=== PATIENT | female | born 2000 | race Caucasian/White ===

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

== ENCOUNTER → 2024-05-26 | Outpatient (CLI) | payer OTHER, SELFPAY ==
[2024-05-30 00:07] LABS: Chlamydia By Nucleic Acid AMP Negative (Negative); Gonococcus By Nucleic Acid AMP Negative (Negative)
[2024-05-31 15:10] LABS: HPV Reflexed? NOT INDICATED
== END | disposition home or self-care (01) ==
LOC: LABSPEC 12:34
PROVIDERS: PCP Family Medicine; Referring Provider Obstetrics & Gynecology; Visit Provider Obstetrics & Gynecology
DX: Z34.00 Encounter for supervision of normal first pregnancy, unspecified trimester (principal)
CPT/HCPCS: 87086; 87491; 87591; 88175; G0145

== ENCOUNTER → 2024-06-24 | Outpatient (CLI) | payer OTHER, SELFPAY ==
[2024-06-24 14:48] LABS: Absolute Neutrophil Count 6.3 X10^3/uL (2.0-7.7); Basophil# 0.02 X10^3/uL; Basophil% 0.3 % (0-1); Eosinophil# 0.11 X10^3/uL; Eosinophils% 1.4 % (0-5); Hematocrit 36.1 % (37-47); Hemoglobin 12.4 g/dL (12.0-15.0); Mean Corp Hgb Conc 34.3 g/dL (32-36); Mean Corpuscular Hgb 31.7 pg (27.0-32.0); Mean Corpuscular Volume 92.3 fL (81-99); Mean Platelet Vol. 8.8 fl (6.2-12.0); Monocyte# 0.27 X10^3/uL; Monocyte% 3.4 % (0-10); NRBC Flagged by Analyzer 0 % (0-5); Neutrophil # 6.34 X10^3/uL (2.7-7.7); Neutrophil % 80.5 % (47-70); Platelet Count 264 K/mm3 (150-450); RBC Distribution Width CV 11.9 % (11.6-14.6); Red Blood Count 3.91 M/mm3 (4.2-5.4); White Blood Count 7.9 K/mm3 (4.4-11.0)
[2024-06-24 15:52] LABS: HIV - WCH Non-Reactive (Nonreactive); Hepatitis B Surface Antigen Non-Reactive (Nonreactive); Hepatitis C Antibody Non-Reactive (Nonreactive); Rubella IgG Reactive (Nonreactive); Syphilis Antibodies Non-reactive
== END | disposition home or self-care (01) ==
LOC: LAB 14:10
PROVIDERS: PCP Family Medicine; Referring Provider Obstetrics & Gynecology; Visit Provider Obstetrics & Gynecology
DX: Z34.90 Encounter for supervision of normal pregnancy, unspecified, unspecified trimester (principal)
CPT/HCPCS: 36415; 85025; 86703; 86762; 86780; 86803; 86850; 86900; 86901; 87340

== ENCOUNTER → 2024-10-10 | Outpatient (CLI) | payer OTHER, SELFPAY ==
[2024-10-10 12:25] LABS: Absolute Lymphocyte Count 0.83 X10^3/uL (0.83-4.51); Absolute Neutrophil Count 6.2 X10^3/uL (2.0-7.7); Basophil# 0.03 X10^3/uL; Basophil% 0.4 % (0-1); Eosinophil# 0.07 X10^3/uL; Eosinophils% 0.9 % (0-5); Hematocrit 34.9 % (37-47); Hemoglobin 11.5 g/dL (12.0-15.0); Lymphocyte # 0.83 X10^3/ul (0.83-4.51); Lymphocyte % 11.2 % (19-41); Mean Corpuscular Hgb 31.9 pg (27.0-32.0); Mean Corpuscular Volume 96.7 fL (81-99); Mean Platelet Vol. 9.4 fl (6.2-12.0); Monocyte# 0.29 X10^3/uL; Monocyte% 3.9 % (0-10); NRBC Flagged by Analyzer 0 % (0-5); Neutrophil # 6.15 X10^3/uL (2.7-7.7); Neutrophil % 83.2 % (47-70); Platelet Count 257 K/mm3 (150-450); RBC Distribution Width CV 11.8 % (11.6-14.6); RBC Distribution Width SD 41.4 fl (35.1-43.9); Red Blood Count 3.61 M/mm3 (4.2-5.4); White Blood Count 7.4 K/mm3 (4.4-11.0)
[2024-10-10 13:11] LABS: Glucose Challenge Gest 1H 50g 93 mg/dL (70-140)
[2024-10-10 13:37] LABS: HIV - WCH Non-Reactive (Nonreactive); Syphilis Antibodies Non-reactive
== END | disposition home or self-care (01) ==
LOC: BWCLAB 09:46
PROVIDERS: PCP Family Medicine; Referring Provider Advanced Practice Midwife; Visit Provider Advanced Practice Midwife
DX: Z34.02 Encounter for supervision of normal first pregnancy, second trimester (principal)
CPT/HCPCS: 36415; 82950; 85025; 86703; 86780

== ENCOUNTER → 2024-11-30 | Outpatient (CLI) | payer OTHER, SELFPAY ==
--- NOTE | 2024-12-05 10:36 | US_ITS ---
PROCEDURE: OB LIMITED WITH BIOMETRICS REASON FOR EXAM: MEASURING 4 WEEKS BEHIND COMPARISON: None. FINDINGS Number: 1 Position: Vertex Placental Position: Posterior and not low-lying. Placental Abnormalities: None. DIMENSIONS: Biparietal Diameter: 8.79 cm: 35 weeks and 4 days: 24 percentile/ Head Circumference: 32.06 cm: 36 weeks and 1 day: 10 percentile/ Abdominal Circumference: 32.31 cm: 36 weeks and 2 days: 41 percentile/ Femur Length: 7.02 cm: 36 weeks 0 days: 24 percentile/ ESTIMATED WEIGHT: 2869 g plus/-430 g ESTIMATED WEIGHT PERCENTILE (24+ weeks): 35 ESTIMATED GESTATIONAL AGE: Baseline: 37 weeks and 0 days By Ultrasound: 36 weeks and 0 days ESTIMATED DATE OF DELIVERY: Baseline: December 26, 2024 By Ultrasound: January 02, 2025 BIOPHYSICAL ASSESSMENT: Amniotic Fluid Volume: Subjectively normal. Amniotic Fluid Index: 13.4 (8-24 cm normal range) Cardiac Motion: 144 beats per minute (average) Trunk and Limb Motion: Present. MATERNAL ANATOMY: Adnexa: Neither maternal ovary is successfully identified. Cervical Length (if measured): 4 cm US/OB Limited With Biometrics IMPRESSION: Single live intrauterine gestation with a mean gestational age of 36 weeks. Reading Location: [facility]
[2024-12-05 10:46] VITALS: BMI 24.7
== END | disposition home or self-care (01) ==
LOC: LABSPEC 16:05
PROVIDERS: PCP Family Medicine; Referring Provider Obstetrics & Gynecology; Visit Provider Obstetrics & Gynecology
DX: Z34.03 Encounter for supervision of normal first pregnancy, third trimester (principal)
CPT/HCPCS: 87077; 87081; 87186

== ENCOUNTER 2024-12-05 10:27 | Outpatient (CLI) | payer OTHER, SELFPAY ==
[2024-12-05 11:00] VITALS: BMI 24.7
[2024-12-05 11:52] VITALS: RESP 16; TEMP 36.8
[2024-12-05 11:53] VITALS: BP 110/74; PULSE 82; PULSE 86; O2SAT 98
--- NOTE | 2024-12-05 12:39 | OB.TRI.PN_ITS ---
Progress Notes Date of Service: 12/05/24 Progress Note: Patient presents for triage evaluation secondary to decreased fundal height in the office-growth US. FHT: 130 Moderate variability reactive no decelerations category I tracing [place]: none Contractions Assessment and plan: Reassuring growth US and TICO, Reactive NST, reassuring maternal and status patient discharged to home to follow-up in the office. See problem list details for additional plan information. Charges/Coding Multi Select Codes Urinary/Genital Urinary/Genital CPT Codes: 89422-44 non-stress test Interp Assessment & Plan (1) Uterine size-date discrepancy, third trimester: COMMENT: growth us-nl D/C home (2) Supervision of normal first : QUALIFIERS: Trimester: third trimester Qualified Code(s): Z34.03 - Encounter for supervision of normal first , third trimester COMMENT: PRR, , RACHELE 12/26/24, Ludin (3) : QUALIFIERS: Weeks of gestation: 37 weeks Qualified Code(s): Z3A.37 - 37 weeks gestation of COMMENT: normal anatomy, discussed genetic & carrier testing- undecided
== END 2024-12-05 12:35 | disposition home or self-care (01) ==
LOC: WPOUT 10:28 → WP 10:29
PROVIDERS: PCP Family Medicine; Referring Provider Advanced Practice Midwife; Visit Provider Advanced Practice Midwife
DX: O26.843 Uterine size-date discrepancy, third trimester (principal); Z3A.37 37 weeks gestation of pregnancy
CPT/HCPCS: 59025; 59050; 76816; 99221; G0378

== ENCOUNTER 2024-12-29 08:13 | Inpatient (IN) | payer OTHER, SELFPAY ==
[2024-12-29] VITALS (43 sets, daily range): BP systolic 111–132; BP diastolic 56–81; PULSE 83–118; RESP 16–20; TEMP 36.8–37.4; O2SAT 97–100; BMI 24.2
--- NOTE | 2024-12-29 08:24 | HP.PCM.OB_ITS ---
HPI - General General Date of Admission: 12/29/24 HPI Narrative PAT HANNAH, is a 24 y/o @ 40 weeks who presents to L&D in active labor. She is GBS positive. She wants minimal intervention and seems to be a good candidate for intermittent monitoring. She denies loss of fluid. She is requesting to get in the tub. So far there is a category 1 tracing. The nurse that just checked her reported that she is 4 cm dilated, 100% effaced, vertex and bulging membranes. Maternal Data Information RACHELE Calculator Estimated Delivery Date Method Current WG Current Estimate 12/26/24 LMP (Certain) 40w 3d Other Estimates 12/29/24 Ultrasound #1 40w 0d PFSH PFSH Medical History Dysmenorrhea Tear of medial meniscus of right knee Seasonal allergies Ovarian cyst Home Medications ?Medication ?Instructions ?Recorded ?Last Taken ?Type PNV 153-FA 400 mcg-om3 35 mg-dha 1 tab PO DAILY 12/28/24 08:00 History 25 mg-epa 5 mg-fish oil chew tablet 1 TAB famotidine 20 mg tablet (Acid 20 mg PO QHS 12/29/24 20:00 History Controller) 20 mg Allergy/AdvReac Type Severity Reaction Status Date / Time No Known Allergies Allergy Verified 12/29/24 07:41 Family History Father Heart disease Anxiety and depression Uncle Heart disease Paternal Mother Heart disease SVT Aunt Heart disease Maternal- SVT Sister Anxiety and depression Surgical History [place] teeth extracted H/O: knee surgery H/O arthroscopy of left knee Social History adopted: No household members: spouse current occupational status: employed current occupation: self employed current occupational exposures/hazards: No pets and animals: No history of recent travel: Yes ([facility]– [place]- [place]) sexually active: Yes Smoking Status: Never smoker alcohol intake: never substance use type: does not use well-balanced diet: daily or most days caffeine: Yes eating out: 1-3 times/week during the past year weight has: remained stable what type of physical activity do you participate in: walking and weight training frequency: 1-2 times per week duration: 45-60 minutes/day sunita/congregational: Gnosticist seatbelt use: always do you feel safe at home: Yes additional social history: - Ludin ac History 1 Elective abortions Hx Para 0 Spontaneous abortions Hx # Term Pregnancies Ectopic pregnancies Hx # Pregnancies Multiple births # of living children Visit Details Expected Delivery Route/Plan Labor Preferences- CB/BF classes: scheduled labor support person: Ludin labor intervention preferences: [] pain management options preferred: limited if possible cut cord/dad catch: no : yes PP control planned: discussed discussed possible routes of delivery and associated risks: [] special requests: [] Plans Covid status: [] Flu vaccine:n given Tdap vaccine: given Rhogam: NA LARC form signed: yes movement and labor precautions reviewed. Problem list reviewed and updated with the most current plan of care details and appropriate orders placed. Relevant counseling for the gestational age provided. Continue routine care and follow up unless otherwise noted in visit notes/problem list details OB Flowsheet Initial Weight: Not Recorded Date -?-?-?-?-?-?-?-?-?-?-?-?- EGA Weight BP Urine Prot -?-?-?-?-?-?-?-?-?--?-?-?- Glucose FHR FuHt Pres Dilation -?-?-?-?-?-?-?-?-?-?-?-?- Effaced St Visit Note 05/26/24 -?-?-?-?-?-?-?-?-?-?-?-?- 9w 3d 127 lb 8 oz 117/71 -?-?-?-?-?-?-?-?-?-?-?-?- 163 -?-?-?-?-?-?-?-?-?-?-?-?- JV- CRL measures 2 .6 cm and consistent with LMP. She is undecided about nipt. 06/24/24 -?-?-?-?-?-?-?-?-?-?-?-?- 13w 4d 129 lb 103/63 Negative -?-?-?-?-?-?-?-?-?-?-?-?- Negative 153 -?-?-?-?-?-?-?-?-?-?-?-?- KW- no vb/kathrine farris. MFM US ordered. feeling well. 07/20/24 -?-?-?-?-?-?-?-?-?-?-?-?- 17w 2d 131 lb 6 oz 108/62 Nega tive -?-?-?-?-?-?-?-?-?-?-?-?- Negative 145 -?-?-?-?-?-?-?-?-?-?-?-?- MH-No vB. Grace de oliveira. Flu vaccine 08/16/24 -?-?-?-?-?-?-?-?-?-?-?-?- 21w 1d 136 lb 6 oz 108/66 Nega tive -?--?-?-?-?-?-?-?-?-?-?-?- Negative 145 21 -?-?-?-?-?-?-?-?-?-?-?-?- SM- no vb lof go od fm 09/12/24 -?-?-?-?-?-?-?-?-?-?-?-?- 25w 0d 145 lb 112/68 Negative -?-?-?-?-?-?-?-?-?-?-?-?- Negative 130 25 -?-?-?-?-?-?-?-?-?-?-?-?- KW- no vb.lof.ct x. good fm. 28 week labs discussed. 10/10/24 -?-?-?-?-?-?-?-?-?-?-?-?- 29w 0d 148 lb 4 oz 110/66 Nega tive -?-?-?-?-?-?-?-?-?-?-?-?- Negative 150 28 -?-?-?-?-?-?-?-?-?-?-?-?- MH-No VB, LOF. L arc done. Considering tdap. 28 wk labs pending 10/24/24 -?-?-?-?-?-?-?-?-?-?-?-?- 31w 0d 148 lb 8 oz 120/77 Nega tive -?-?-?-?-?-?-?-?-?-?-?-?- Negative 145 30 -?-?-?-?-?-?-?-?-?-?-?-?- KW- no vb/lof/ct x. good fm. Tdap today. preference worksheet given 11/07/24 -?-?-?-?-?-?-?-?-?-?-?-?- 33w 0d 154 lb 123/79 Negative -?-?-?-?-?-?-?-?-?-?-?-?- Negative 135 32 -?-?-?-?-?-?-?-?-?-?-?-?- KW- no vb/lof/ct x. good fm. no concerns today 11/21/24 -?-?-?-?-?-?-?-?-?-?-?-?- 35w 0d 153 lb 8 oz 118/72 Nega tive -?-?-?-?-?-?-?-?-?-?-?-?- Negative 145 34 -?-?-?-?-?-?-?-?-?-?-?-?- JV- no lof, vagi nal bleeding, or dec fm. no complaints other than heart burn. pepcid sent to pharmacy 11/24/24 -?-?-?-?-?-?-?-?-?-?-?-?- 35w 3d 156 lb 2 oz 112/74 Nega tive -?-?-?-?-?-?-?-?-?-?-?-?- Negative 155 34 -?-?-?-?-?-?-?-?-?-?-?-?- KW- no vb/lof/ct x. good fm. rash/itching onset thursday evening. no changes in lotion/detergents -no significant rash noted. Likely start of pupps rash- discussed appropriate medications and comfort measures. follow up early next week. 11/30/24 -?-?-?-?-?-?-?-?-?-?--?-?- 36w 2d 153 lb 8 oz 125/78 Nega tive -?-?-?-?-?-?-?-?-?-?-?-?- Negative 145 34 Cephalic 0 -?-?-?-?-?-?-?-?-?-?-?-?- Sm- no vb lof go od fm no reuglar ctx gbs collected, growth us ordered 12/05/24 -?-?-?-?-?-?-?-?-?-?-?-?- 37w 0d 154 lb 8 oz 121/80 Nega tive -?-?-?-?-?-?-?-?-?-?-?-?- Negative 135 33 Cephalic -?-?-?-?-?-?-?-?-?-?-?-?- SM- didn't get g shanta US done- sending to l 12/12/24 -?-?-?-?-?-?-?-?-?-?-?-?- 38w 0d 156 lb 129/78 Negative -?-?-?-?-?-?-?-?-?-?-?-?- Negative 147 34 Cephalic 0 .5 -?-?-?-?-?-?-?-?-?-?-?-?- JV- pt uncomfort able with exam, unable to tunnel finger to internal os. labor precautions discussed. growth scan normal. 12/19/24 -?-?-?-?-?-?-?-?-?-?-?-?- 39w 0d 156 lb 4 oz 115/57 Nega tive -?-?-?-?-?-?-?-?-?-?-?-?- Negative 140 37 Cephalic 0 .5 -?-?-?-?-?-?-?-?-?-?-?-?- KW- no vb/lof/ct x. good fm. doing well. 12/26/24 -?-?-?-?-?-?-?-?-?-?-?-?- 40w 0d 157 lb 4 oz 116/73 Nega tive -?-?-?-?-?-?-?-?-?-?-?-?- Negative 140 37.5 Cephalic 1 -?-?-?-?-?-?-?-?-?-?-?-?- 60 -2 KW- no vb/ lof/ctx. good fm. TICO done today by ABBY-9. IOL planned for thursday. ROS Constitutional Constitutional: Denies change in weight, fatigue, fever(s), headache(s), poor appetite or weakness Eyes Eyes: Denies blurry vision, change in vision, seeing flashes or spots in vision ENT HEENT: Denies dizziness, headache(s), loss taste/smell or sore throat Cardiovascular Cardiovascular: Denies chest pain, dizziness, dyspnea, irregular heart rhythm, leg edema, palpitations, rapid heart rate or vomiting Respiratory/Chest Respiratory/Chest: Denies chest tightness, cough, dyspnea or breast pain Gastrointestinal Gastrointestinal: Denies abdominal pain, anorexia, constipation, cramping, diarrhea, hemorrhoids, vomiting or weight changes Genitourinary Genitourinary: Denies dysuria, flank pain, genital lesions, genital pain, urinary frequency or urinary urgency Musculoskeletal Musculoskeletal: Denies back pain, difficulty walking, joint pain, limited range of motion, muscle cramps or numbness Integumentary Integumentary: Denies lesions or unusual bruising Neurologic Neurologic: Denies abnormal movements, abnormal speech, dizziness, numbness, seizure-like activity or syncope Psychiatric Psychiatric: Denies anxiety, behavioral changes, change in appetite, change in libido, cognitive impairment, confusion, depression, difficulty concentrating, hallucinations or suicidal thoughts Endocrine Endocrinology: Denies excessive sweating, polydipsia or polyuria Hematologic/Lymphatic Hematologic/Lymphatic: Denies easy bleeding, easy bruising or lymphadenopathy Allergic/Immunologic Allergic/Immunologic: Denies itchy eyes, lip swelling, seasonal rhinorrhea, rhinitis, throat swelling, tongue swelling, eczemia, wheezing or asthma Vital Signs Vital Signs Vital Signs: 12/29/24 05:47 12/29/24 05:47 12/29/24 05:47 Temperature 99.3 F H Temperature Source Temporal Pulse Rate Respiratory Rate 20 H Blood Pressure BP Systolic BP Diastolic Pulse Ox 12/29/24 05:51 12/29/24 05:51 12/29/24 05:52 Temperature Temperature Source Pulse Rate 96 100 Respiratory Rate Blood Pressure 132/74 H BP Systolic 132 BP Diastolic 74 Pulse Ox 12/29/24 05:52 12/29/24 07:47 12/29/24 07:47 Temperature Temperature Source Pulse Rate 100 Respiratory Rate Blood Pressure 132/80 H BP Systolic 132 BP Diastolic 80 Pulse Ox 97 12/29/24 07:49 12/29/24 07:49 Temperature Temperature Source Pulse Rate 118 H Respiratory Rate Blood Pressure BP Systolic BP Diastolic Pulse Ox 99 Weight Weight: 154 lb 12.8 oz Body Mass Index (BMI) 24.2 Physical Exam Const alert, oriented x3, no apparent distress and healthy appearing General Appearance: cooperative; Negative for anxious HEENT normocephalic Face and Sinus: normal facial exam Eyes EOMs intact bilaterally and no scleral icterus General Eye: normal appearance of both eyes Neck full ROM and supple Lymph Lymphatic: no lymphadenopathy noted Chest Chest: abnormal inspection of the chest Resp normal respiratory effort Effort and Inspection: able to speak in complete sentences Cardio regular rate GI soft to palpation and non-tender Inspection: gravid Palpation: soft; Negative for tender external exam normal Amniotic Fluid: ROM+plus Back/Spine no CVA tenderness Extremity normal to inspection, full ROM and no clubbing, cyanosis or edema General Extremity: Negative for calf tenderness or edema Skin Lesions: no lesions Rashes: no rashes Psych mental status grossly normal Labs Labs Labs: Blood Type A POSITIVE Antibody Screen NEGATIVE Hct 34.9 % (37-47) L Hgb 11.5 g/dL (12.0-15.0) L Obstetrics Ultrasound Syphilis Total Ab Non-reactive Rubella IgG Antibody Reactive (Nonreactive) Hep Bs Antigen Non-Reactive (Nonreactive) Hepatitis C Antibody Non-Reactive (Nonreactive) Chlamydia DNA (ROSIE) Negative (Negative) N.gonorrhoeae DNA (ROSIE) Negative (Negative) HIV 1&2 Antibody Non-Reactive (Nonreactive) Glucose 1 Hr 50 gm 93 mg/dL (70-140) Assessment & Plan (1) Positive GBS test: (2) Uterine size-date discrepancy, third trimester: COMMENT: growth us- D/C home (3) Supervision of normal first : QUALIFIERS: Trimester: third trimester Qualified Code(s): Z34.03 - Encounter for supervision of normal first , third trimester COMMENT: PRR, , RACHELE 12/26/24, Ludin (4) : QUALIFIERS: Weeks of gestation: 40 weeks Qualified Code(s): Z3A.40 - 40 weeks gestation of COMMENT: normal anatomy, discussed genetic & carrier testing- undecided
[2024-12-29 08:50] LABS: Absolute Lymphocyte Count 0.74 X10^3/uL (0.83-4.51); Absolute Neutrophil Count 9.3 X10^3/uL (2.0-7.7); Basophil# 0.03 X10^3/uL; Basophil% 0.3 % (0-1); Eosinophil# 0.03 X10^3/uL; Eosinophils% 0.3 % (0-5); Hematocrit 36.9 % (37-47); Hemoglobin 12.7 g/dL (12.0-15.0); Lymphocyte # 0.74 X10^3/ul (0.83-4.51); Lymphocyte % 7.1 % (19-41); Mean Corp Hgb Conc 34.4 g/dL (32-36); Mean Corpuscular Hgb 32.5 pg (27.0-32.0); Mean Corpuscular Volume 94.4 fL (81-99); Mean Platelet Vol. 10.9 fl (6.2-12.0); Monocyte# 0.29 X10^3/uL; Monocyte% 2.8 % (0-10); NRBC Flagged by Analyzer 0 % (0-5); Neutrophil # 9.25 X10^3/uL (2.7-7.7); POSITIVE COUNT YES; RBC Distribution Width CV 12.4 % (11.6-14.6); RBC Distribution Width SD 42.1 fl (35.1-43.9); Red Blood Count 3.91 M/mm3 (4.2-5.4); White Blood Count 10.4 K/mm3 (4.4-11.0)
[2024-12-29 08:51] LABS: Differential Indicated SCAN CRITERIA MET
[2024-12-29 09:06] LABS: Syphilis Antibodies Nonreactive (Nonreactive)
[2024-12-29] MEDS: 0.9% Saline Lock 10 ML Syringe IV (09:17)
[2024-12-29] MEDS: Lactated Ringers 1,000 ML 50 ML IV (09:18)
[2024-12-29] MEDS: Penicillin G Pot 5,000,000 UNITS in 0.9% Normal Saline (100mL MB+) 100 ML 150 UNITS IV (09:19)
[2024-12-29 09:46] LABS: Differential Comment SCANNED; Platelet Count 222 K/mm3 (150-450)
[2024-12-29] MEDS: Oxytocin 10 UNITS/ML Vial IM (11:00)
[2024-12-29] MEDS: Oxytocin 15 Units/NS 250ml 15 UNITS/250 ML IV.SOLN 334 UNITS IV (11:05)
--- NOTE | 2024-12-29 11:25 | OB.VAGDELI_ITS ---
Assessment & Plan (1) Active labor at term: (2) Positive GBS test: (3) Uterine size-date discrepancy, third trimester: COMMENT: growth us-nl D/C home (4) Supervision of normal first : QUALIFIERS: Trimester: third trimester Qualified Code(s): Z34.03 - Encounter for supervision of normal first , third trimester COMMENT: PRR, , RACHELE 12/26/24, Ludin (5) : QUALIFIERS: Weeks of gestation: 40 weeks Qualified Code(s): Z3A.40 - 40 weeks gestation of COMMENT: normal anatomy, discussed genetic & carrier testing- undecided Maternal Data Information RACHELE Calculator Estimated Delivery Date Method Current WG Current Estimate 12/26/24 LMP (Certain) 40w 3d Other Estimates 12/29/24 Ultrasound #1 40w 0d Final RACHELE Source: LMP Gestational age: 40 weeks 3 days Vaginal Delivery Maternal Presentation Maternal Presentation: Active Labor Vaginal Delivery Information Procedure Performed: Spontaneous Vaginal Delivery Surgeon/Practitioner: Katarina Jacques Date of Procedure: 12/29/24 Pre-Procedure Diagnosis: active labor at term, Post-Procedure Diagnosis: active labor at term, Type of anesthesia: None Estimated Blood Loss: 100cc Time of Delivery: 10:59 Findings Description of procedure: Patient began pushing and delivered the head in the JUWAN presentation. The head was delivered atraumatically.. The anterior and posterior shoulders delivered without complication followed by the rest of the infant and the infant was placed on the maternal abdomen. Delayed cord clamping was employed for approximately 60 seconds. Cord was clamped and cut and gentle traction was applied to the cord and the placenta delivered spontaneously immediately following it was noted to be intact with three-vessel cord. The perineum and vagina were inspected and noted to have no laceration. EBL was 100 cc. Patient and tolerated delivery well. Procedure findings: viable female infant Sara Presentation: Vertex Amniotic Membrane Rupture Type: Spontaneous Amniotic Fluid Description: Clear Placental Delivery Description: Spontaneous Placenta Disposition: [facility] Specimen collected: No Cord Vessel Description: 3 Vessels Cord Entanglement: None A Gender: Female (1 minute): 8 (5 minute): 9 Delayed Cord Clamping: Yes Child Care Counselor market intelligence consultant: No Post Vaginal Deli Medications given after delivery: IV Pitocin and IM Pitocin Episiotomy Description: None Laceration: None Complication Complications: No Multi Select Codes Urinary/Genital Urinary/Genital CPT Codes: 34431 Vaginal Delivery [facility]
--- NOTE | 2024-12-29 11:27 | DCINST_ITS ---
Discharge Instructions Diet Discharge Diet: No restrictions DC O2, CPAP, BIPAP needs Home O2 Discharge instructions: No Dressing / Incision Discharge Activity: Return to Normal Activity, May Not Drive (while taking narcotic pain medications.) and May Shower May resume sexual activity in: 4-6 weeks Dressing / Incision Call your doctor if your incision/area has: Continuous Slow Oozing, Sudden Increased Bleeding, Increased Pain/ Swelling, Increased Redness and Foul Smelling Discharge Follow Up Care Please Follow Up With: Katarina Jacques DO When: Call [phone] to make an appointment with your doctor in 6 weeks. If you had elevated blood pressure or 4th degree laceration, you will need to be seen in 2 weeks. Test Results: Test results from this visit will be discussed in further detail at your follow- up appointment, if applicable. Discharge Plan Admission Admit Date/Time: 12/29/24 08:13 Attending Provider: Katarina Jacques Primary Care Provider: Violet Paz Discharge Orders/Prescriptions Prescriptions: No Action PNV no.[id number] 400 mcg-35 mg- 25 mg-5 mg tablet,chewable 1 tab PO DAILY famotidine [Acid Controller] 20 mg tablet 20 mg PO QHS Referrals / Follow Up: Violet Paz MD [Primary Care Provider] -
[2024-12-29] MEDS: Ibuprofen 600 MG Tablet PO (13:11)
[2024-12-30] VITALS (11 sets, daily range): BP systolic 112–125; BP diastolic 67–80; PULSE 76–97; RESP 16–18; TEMP 36.6–37.2; O2SAT 97–98
[2024-12-30] MEDS: Ibuprofen 600 MG Tablet PO ×3 (01:14→15:29)
[2024-12-30] MEDS: Senna/Docusate Sodium 1 Tablet PO (08:56)
--- NOTE | 2024-12-30 09:18 | PCM.PN.OB ---
Subjective Subjective Patient doing well without complaints. Tolerating PO. Ambulating and voiding without difficulty. Feeding well. Denies chest pain, shortness of breath, calf pain/swelling, fevers, chills, lightheadedness. Objective Data Objective Data Vital Signs: Vital Signs Temp Pulse Resp BP Pulse Ox O2 Del Method 98.0 F 79 18 112/67 97 Room Air 12/30/24 08:50 12/30/24 08:50 12/30/24 08:50 12/30/24 08:50 12/30/24 08:50 12/30/24 08:50 Oxygen Delivery Method Room Air Weight: 154 lb 12.8 oz Body Mass Index (BMI) 24.2 Intake & Output: Intake and Output for Last 24 Hours 12/28/24 12/29/24 12/30/24 23:59 23:59 23:59 Intake Total 444.17 / 444.17 Output Total 1400 / 1400 Balance -955.83 / -955.83 Lab / Micro Data 12/29/24 08:25 Labs: Laboratory Results - last 24 hr 12/29/24 08:25: Plt Count 222, Differential Comment SCANNED, Antibody Screen NEGATIVE ROS Constitutional Constitutional: Denies chills, fatigue, fever(s), poor appetite or weakness Eyes Eyes: Denies blurry vision, change in vision, seeing flashes or spots in vision ENT HEENT: Denies dizziness, headache(s), loss taste/smell or sore throat Cardiovascular Cardiovascular: Denies chest pain, dizziness, dyspnea, irregular heart rhythm, palpitations or rapid heart rate Respiratory/Chest Respiratory/Chest: Denies chest tightness, cough, dyspnea or breast pain Gastrointestinal Gastrointestinal: Denies abdominal pain, constipation or vomiting Genitourinary Genitourinary: Denies dysuria or flank pain Musculoskeletal Musculoskeletal: Denies difficulty walking, joint pain, limited range of motion or numbness Neurologic Neurologic: Denies abnormal movements, abnormal speech, dizziness, numbness, seizure-like activity or syncope Psychiatric Psychiatric: Denies anxiety, behavioral changes, change in appetite, confusion, depression or suicidal thoughts Physical Exam Const alert, oriented x3 and no apparent distress General Appearance: cooperative and comfortable Resp normal respiratory effort Cardio regular rate GI normal to inspection, nondistended, normoactive bowel sounds GI Narrative: uterus is firm below umbilicus Palpation: soft Back/Spine no CVA tenderness and thoraco-lumbar ROM normal Extremity normal to inspection, no clubbing, cyanosis or edema, no calf tenderness and no pedal edema Psych mental status grossly normal, thought process normal, cooperative, affect normal, speech normal, activity/motor behavior normal, denies homicidal ideation and denies suicidal ideation Assessment & Plan (1) Vaginal delivery: COMMENT: ABBY - 12/29/24 PLAN: Plan s/p PPD # 1 1. routine post delivery care 2. breast feeding- support given 3. rh positive 4. rubella immune 5. plan for dc to home
[2024-12-31] MEDS: Ibuprofen 600 MG Tablet PO ×2 (00:23→07:50)
[2024-12-31 02:44] VITALS: BP 109/69; PULSE 85; RESP 16; TEMP 36.6
[2024-12-31 07:53] VITALS: BP 114/72; PULSE 88
[2024-12-31 07:54] VITALS: BP 114/72; PULSE 88; RESP 16; TEMP 36.8; O2SAT 97
--- NOTE | 2024-12-31 10:00 | PCM.DC.SUM ---
Providers Date of Admission: 12/29/24 Primary Care Physician: Dr. Violet Paz MD Reason For Visit: VAGINAL DELIVERY Diagnosis Discharge Diagnosis (1) Vaginal delivery: Status: Acute Code(s): O80 - Encounter for full-term uncomplicated delivery Plan s/p PPD # 1 1. routine post delivery care 2. breast feeding- support given 3. rh positive 4. rubella immune 5. plan for dc to home Medications at Discharge Home Medications PNV 153-FA 400 mcg-om3 35 mg-dha 25 mg-epa 5 mg-fish oil chew tablet 1 tab PO DAILY 05/17/24 famotidine 20 mg tablet (Acid Controller) 20 mg PO QHS 12/29/24 ibuprofen 800 mg tablet 800 mg PO Q8H PRN pain #30 tabs 12/30/24 Hospital Course Operations None Procedures - (vaginal delivery ) Summary of Care Provided Minutes Spent on Discharge: 10 Hospital Course: The patient was admitted on 12/29/24 for active labor management. She was not in labor long when she delivered her baby without medication. On post day #1 she required some assistance with breast feeding. On day #2 she was ambulating well, eating, using the restroom, and breast feeding without assistance. She currently states that she is ready to go home. Physical Exam Const alert, oriented x3 and no apparent distress General Appearance: cooperative and comfortable Resp normal respiratory effort Cardio regular rate GI normal to inspection, nondistended, normoactive bowel sounds GI Narrative: uterus is firm below umbilicus Palpation: soft Back/Spine no CVA tenderness and thoraco-lumbar ROM normal Extremity normal to inspection, no clubbing, cyanosis or edema, no calf tenderness and no pedal edema Psych mental status grossly normal, thought process normal, cooperative, affect normal, speech normal, activity/motor behavior normal, denies homicidal ideation and denies suicidal ideation Weight / BMI Weight Weight: 154 lb 12.8 oz Body Mass Index (BMI) 24.2 ABG / Lab / Microbiology Data 12/29/24 08:25 D/C Instructions Discharge Diet: No restrictions Discharge Activity: Return to Normal Activity, May Not Drive (while taking narcotic pain medications.) and May Shower May resume sexual activity in: 4-6 weeks Call your doctor if your incision/area has: Continuous Slow Oozing, Sudden Increased Bleeding, Increased Pain/ Swelling, Increased Redness and Foul Smelling Discharge DC O2, CPAP, BIPAP Needs Home O2 Discharge instructions: No Please Follow Up With: Katarina Jacques, When: Call [phone] to make an appointment with your doctor in 6 weeks. If you had elevated blood pressure or 4th degree laceration, you will need to be seen in 2 weeks. Meaningful Use Info Meaningful Use Meaningful Use Diagnoses (Choose all that apply): None applicable Ischemic Stroke Statin Dosing Therapy Reference: STATIN DOSE THERAPY REFERENCE: * Patients > 75 years receive moderate or high dose statin therapy. * Patients 75 years or YOUNGER should receive HIGH intensity statin dose unless contraindicated. You will be required to document reason for non-treatment if statin daily dose does not meet guidelines. HIGH DOSE STATIN THERAPY DAILY Atorvastatin > than or = to 40 mg Rosuvastatin > than or = to 20 mg Amlodipine + Atorvastatin > than or = to 2.5/40 mg Ezetimibe + Simvastatin 10/80 mg Simvastatin 80mg Discharge Plan Admission Admit Date/Time: 12/29/24 08:13 Primary Reason for Your Visit: vaginal delivery Attending Provider: Katarina Jacques Primary Care Provider: Violet Paz Discharge Orders/Prescriptions Prescriptions: New ibuprofen 800 mg tablet 800 mg PO Q8H PRN (Reason: pain) Qty: 30 0RF No Action PNV no.[id number] 400 mcg-35 mg- 25 mg-5 mg tablet,chewable 1 tab PO DAILY famotidine [Acid Controller] 20 mg tablet 20 mg PO QHS Referrals / Follow Up: Violet Paz MD [Primary Care Provider] - Disposition Disposition (needs filled in before D/C Order can be placed): Home, Self Care
== END 2024-12-31 11:30 | disposition home or self-care (01) | DRG 807 ==
LOC: WPOUT 08:22 → WP 08:22
PROVIDERS: Admitting Provider Obstetrics & Gynecology; PCP Family Medicine; Referring Provider Obstetrics & Gynecology; Visit Provider Obstetrics & Gynecology
DX: O26.843 Uterine size-date discrepancy, third trimester (principal); Z37.0 Single live birth; O99.820 Streptococcus B carrier state complicating pregnancy; Z3A.40 40 weeks gestation of pregnancy
CPT/HCPCS: 59025; 59050; 85025; 86780; 86850; 86900; 86901; 99221; A4216; G0378